=== PATIENT | female | born 1965 | race Caucasian/White ===

== ENCOUNTER 2021-05-26 08:48 | Outpatient (CLI) | payer BC | END 2021-05-26 08:49 | disposition home or self-care (01) | LOC: CSHCT 08:48 | PROVIDERS: ATTEND Radiology Radiation Oncology | DX: C50.919 Malignant neoplasm of unspecified site of unspecified female breast (principal); K86.9 Disease of pancreas, unspecified; D18.03 Hemangioma of intra-abdominal structures; K76.9 Liver disease, unspecified | CPT/HCPCS: 74170 ==